=== PATIENT | male | born 1955 | race Caucasian/White ===

== ENCOUNTER 2018-11-25 11:29 | Outpatient (CLI) | payer MEDICAID, SELFPAY ==
--- NOTE | 2018-11-25 10:50 | DI.RAD_ITS ---
EXAM: XR KNEE LT 3V AP,LAT,LUPILLO INDICATION: CHRONIC PAIN. COMPARISON: XR KNEE RT 3V AP,LAT,LUPILLO from 11/25/2018 TECHNIQUE: 2D digital imaging was performed. FINDINGS: Three views were obtained. No bony or soft tissue abnormality seen. IMPRESSION:
--- NOTE | 2018-11-25 11:09 | DI.RAD_ITS ---
EXAM: XR KNEE RT 3V AP,LAT,LUPILLO INDICATION: CHRONIC PAIN. COMPARISON: No exams were available for comparison TECHNIQUE: 2D digital imaging was performed. FINDINGS: Three views were obtained. There narrowing of the medial tibiofemoral cartilaginous joint space. No bony or soft tissue abnormality seen. IMPRESSION: Narrowing of medial tibiofemoral cartilaginous joint space, presumably on a degenerative basis.
== END 2018-11-25 11:49 ==
PROVIDERS: PCP General Practice; Visit Provider General Practice
DX: M25.561 Pain in right knee (principal); G89.29 Other chronic pain; M17.11 Unilateral primary osteoarthritis, right knee; M25.562 Pain in left knee
CPT/HCPCS: 73562

== ENCOUNTER 2019-02-21 03:11 | Outpatient (CLI) | payer MEDICAID, SELFPAY ==
[2019-02-21 12:26] LABS: Hemoglobin A1C 5.6 % (3.8-5.6)
[2019-02-21 12:39] LABS: Calculated LDL 117 mg/dL; Cholesterol 203 mg/dL (<200); HDL Cholesterol 72 mg/dL (40-60); Triglyceride 71 mg/dL (<150)
[2019-02-24 10:25] LABS: PSA, Screening 1.8 ng/mL (0.0-4.5)
== END 2019-02-21 03:31 ==
PROVIDERS: PCP Nurse Practitioner; Visit Provider Nurse Practitioner
DX: Z13.1 Encounter for screening for diabetes mellitus (principal); Z13.220 Encounter for screening for lipoid disorders; Z12.5 Encounter for screening for malignant neoplasm of prostate
CPT/HCPCS: 36415; 80061; 84153; 83036

== ENCOUNTER 2020-12-16 02:51 | Outpatient (CLI) | payer MEDICAID, SELFPAY ==
[2020-12-16 22:24] LABS: PSA, Screening 2.9 ng/mL (0.0-4.5)
== END 2020-12-16 02:52 | disposition home or self-care (01) ==
LOC: LBO 02:51
PROVIDERS: PCP Nurse Practitioner; Visit Provider Nurse Practitioner
DX: Z12.5 Encounter for screening for malignant neoplasm of prostate (principal)
CPT/HCPCS: 36415; 84153

== ENCOUNTER 2022-11-01 14:33 | Outpatient (REF) | payer MEDICAID, SELFPAY ==
[2022-11-01 18:35] LABS: Hemoglobin A1C 5.6 % (<5.7)
[2022-11-02 19:57] LABS: PSA, Screening 4.7 ng/mL (<=4.5)
[2022-11-03 10:05] LABS: Hepatitis C Ab w Rflx HCV PCR Negative (Negative)
[2022-11-03 10:26] LABS: HIV-1/2 Ag & Ab Screen Negative (Negative)
== END 2022-11-01 14:34 | disposition home or self-care (01) ==
LOC: NCHCN 14:33
PROVIDERS: PCP Family Medicine; Visit Provider Family Medicine
DX: Z13.1 Encounter for screening for diabetes mellitus (principal); Z80.42 Family history of malignant neoplasm of prostate; Z11.4 Encounter for screening for human immunodeficiency virus [HIV]; Z12.5 Encounter for screening for malignant neoplasm of prostate; Z11.59 Encounter for screening for other viral diseases
CPT/HCPCS: 84153; 86803; 87389; 83036

== ENCOUNTER 2022-11-13 16:21 | Outpatient (REF) | payer MEDICAID, SELFPAY ==
[2022-11-13 16:15] LABS: Platelet Count 321 10^3/uL (130-400)
[2022-11-13 16:37] LABS: Hemoglobin A1C 5.6 % (<5.7)
[2022-11-13 17:00] LABS: Calculated LDL 115 mg/dL (<100); Cholesterol 195 mg/dL (<200); HDL Cholesterol 70 mg/dL (40-60); Triglyceride 53 mg/dL (<150)
== END 2022-11-13 16:22 | disposition home or self-care (01) ==
LOC: NCHCN 16:21
PROVIDERS: PCP Family Medicine; Visit Provider Family Medicine
DX: G45.9 Transient cerebral ischemic attack, unspecified (principal); Z13.1 Encounter for screening for diabetes mellitus
CPT/HCPCS: 80061; 83036; 85049

== ENCOUNTER 2022-11-16 08:51 | Outpatient (CLI) | payer MEDICAID, SELFPAY | END 2022-11-16 08:52 | disposition home or self-care (01) | PROVIDERS: PCP Family Medicine; Visit Provider Family Medicine | DX: G45.9 Transient cerebral ischemic attack, unspecified (principal) | CPT/HCPCS: 93270 ==

== ENCOUNTER → 2022-11-29 02:51 | Outpatient (CLI) | payer MEDICAID, SELFPAY ==
--- NOTE | 2022-11-29 | DI.MRI_ITS ---
Exam(s) MR BRAIN WO EXAM: MR BRAIN WO CLINICAL HISTORY: TIA,G45.9 TECHNIQUE: Multiplanar multisequence MRI of the brain was performed. COMPARISON: No exams were available for comparison FINDINGS: VENTRICLES AND EXTRA AXIAL SPACES: Normal in size and morphology for the patient's age. MIDLINE SHIFT: None. CEREBRAL PARENCHYMA: No focus of restricted diffusion to suggest acute infarct. No space-occupying le jc identified. There are few foci of hyperintense signal seen in the white matter on the FLAIR and T2 weighted images likely reflecting small vessel ischemic disease. HEMORRHAGE: None. BRAINSTEM/CEREBELLUM: Normal. CALVARIUM: Normal. VISUALIZED PARANASAL SINUSES/MASTOIDS:No fluid levels are seen. There is mild mucosal thickening in the visualized paranasal sinuses. [place]: Normal flow void. PITUITARY GLAND: Unremarkable. OTHER FINDINGS: None. IMPRESSION: 1. No evidence of an acute infarct. 2. White matter foci on the FLAIR and T2 weighted images likely reflecting small vessel ischemic dise ase. DATA REPOSITORY:
--- NOTE | 2022-11-29 | DI.MRI_ITS ---
Exam(s) MR ANGIO NECK WO EXAM: MR ANGIO NECK WO CLINICAL HISTORY: TIA,G45.9. TECHNIQUE: Multiplanar multisequence MRA of the Neck was performed. COMPARISON: No exams were available for comparison FINDINGS: There is patient motion artifact. Common Carotid: Right: No dissection, occlusion or significant stenosis. Left: No dissection, occlusion or significant stenosis. External Carotid: Right: No evidence of occlusion or significant stenosis. Left: No evidence of occlusion or significant stenosis. Internal Carotid: Right: No dissection, occlusion or significant stenosis. Left: No dissection, occlusion or significant stenosis. Vertebral Artery: Right: No dissection, occlusion or significant stenosis. Left: No dissection, occlusion or significant stenosis. The visualized paraspinal soft tissues are unremarkable. IMPRESSION: No evidence of dissection, occlusion or significant stenosis. DATA REPOSITORY:
--- NOTE | 2022-11-29 | DI.MRI_ITS ---
Exam(s) MR ANGIO BRAIN WO CLINICAL HISTORY: TIA,G45.9. TECHNIQUE: Multiplanar multisequence MRA of the brain was performed. COMPARISON: MR MR BRAIN WO from 11/29/2022 FINDINGS: Carotid Arteries: No aneurysm, occlusion or significant stenosis. Anterior Cerebral Arteries: Right: No aneurysm, occlusion or significant stenosis. Left: No aneurysm, occlusion or significant stenosis. Middle Cerebral Arteries: Right: No aneurysm, occlusion or significant stenosis. Left: No aneurysm, occlusion or significant stenosis. Posterior Cerebral Arteries: Right: No aneurysm, occlusion or significant stenosis. Left: No aneurysm, occlusion or significant stenosis. Vertebral Arteries: Right: No aneurysm, occlusion or significant stenosis. Left: No aneurysm, occlusion or significant stenosis. Basilar Artery: No aneurysm, occlusion or significant stenosis. IMPRESSION: Normal MRA examination of the [place]. DATA REPOSITORY:
== END ==
PROVIDERS: PCP Family Medicine; Visit Provider Family Medicine
DX: G45.9 Transient cerebral ischemic attack, unspecified (principal)
CPT/HCPCS: 70544; 70547; 70551

== ENCOUNTER → 2022-12-22 03:07 | Outpatient (CLI) | payer MEDICAID, SELFPAY ==
--- NOTE | 2022-12-22 07:30 | DI.US_ITS ---
APPROVED REPORT EXAM: Comprehensive 2D, Doppler, and color-flow Echocardiogram Patient Location: Out-Patient Lead Programmer: Lanette Boyd RDCS (AE) Indications: TIA Other Information Study Quality: Adequate Conclusion Normal left ventricular wall thickness and chamber size. Ejection fraction is 59%. Wall motion is n ormal Normal right ventricular size and function Both atria are normal in size There is no structural or hemodynamically significant valvular disease Estimated right ventricular systolic pressure is 23 mmHg Wall motion Left Ventricle The left ventricle is normal size. The left ventricular systolic function is normal. The left ventric ular ejection fraction is within the normal range. There is normal left ventricular wall thickness. T here is normal LV segmental wall motion. There is no ventricular septal defect visualized. LVEF is 59 %. Right Ventricle The right ventricle is normal size. The right ventricular systolic function is normal. Atria The left atrium size is normal. The right atrium size is normal. The interatrial septum is intact wit h no evidence for an atrial septal defect. Aortic Valve The aortic valve is normal in structure. Aortic valve is trileaflet. There is no aortic valvular sten osis. No aortic regurgitation is present. Mitral Valve The mitral valve is normal in structure. No evidence of mitral valve stenosis. Trace mitral regurgita tion. Tricuspid Valve The tricuspid valve is normal in structure. There is no tricuspid valve stenosis. Trace tricuspid reg urgitation. The RVSP is 23.3mmHg. Pulmonic Valve The pulmonary valve is normal in structure. There is no pulmonic valvular stenosis. Trace pulmonic re gurgitation. Great Vessels The aortic root is normal in size. The ascending aorta is normal in size. Aortic arch is normal in ca liber. IVC is normal in size and collapses >50% with inspiration. Pericardium There is no pericardial effusion. 2D Dimensions IVSD d PLAX 0.75 cm M: 0.6-1.2 Ao Root d 3.32 cm M: 3.1 - 3.7 LVPW d PLAX 0.72 cm M: 0.6 - 1.2 Ao Asc Diam d 3.33 cm M: 2.6 - 3.4 LVID d PLAX 4.24 cm M: 4.2 - 5.8 LVDs 2.94 cm M: 2.5 - 4.0 LV EF Teichholz 58.5 % FS 30.62 % LV EDV (Teich) 80.3 mL LV ESV (Teich) 33.3 mL M-Mode TAPSE 2.45 cm (M/F) >1.7 Auto EF LV EDV A4C 84.3 mL LV EDV A2C 90.8 mL LV EDV BP 88.0 mL LV ESV A4C 35.6 mL LV ESV A2C 34.6 mL LV ESV BP 35.0 mL LVEF(%) A4C 57.8 % LVEF(%) A2C 61.9 % LVEF(%) BP 60.2 % LV SV A4C 48.7 ml LV SV A2C 56.3 ml LV SV BP 53.0 ml LV CO A4C 2.6 L/min LV CO A2C 3.4 L/min LV CO BP 3.0 L/min HR A4C 53.41 BPM HR A2C 60.61 BPM LV EDV Index (BP) LV Strain Long Pk Overal Avg (s) 19.73 RV Strain Global Peak Long. Strain A4C 16.74 Global Peak Long. Strain A4C FW 19.49 LA Volume LA Length A4C 4.2 cm LA Length A2C 3.9 cm LA Area A4C s 12.60 cm2 LA Area A2C s 11.61 cm2 LA Vol A4C A-L 32.47 mL LA Vol A2C A-L 29.37 mL LA Vol Biplane A-L 31.9 mL LA Vol/BSA A4C A-L LA Vol/BSA A2C A-L LA Vol/BSA BP A-L 17.5 mL/m2 LA Vol A4C MOD 29.2 mL LA Vol A2C MOD 26.9 mL LA Vol BP MOD 28.9 mL RA Volume RA Area A4C 13.8 cm2 RA ESV A4C (A-L) 33.9mL RA Vol/BSA A4C A-L RA Length A4C 4.8 cm RA ESV A4C (MOD) 32.6mL LV Diastology MV E' medial 0.101 (>0.07 m/s) MV E Vmax 0.83 (0.4-1.3 m/s) MV E/E' MED 8.26 (<14) MV A Vmax 0.55 (0.4-1.3 m/s) MV E' lateral 0.113 (>0.1 m/s) E/A Ratio 1.5 MV E/E' LAT 7.35 (<14) MV E' Average 0.107 m/s MV E/E'(average) 7.78 Aortic Valve AoV Vmax 1.47 m/s LVOT Vmax 1.25 m/s AoV Peak Grad 8.7 mmHg LVOT Peak Grad 6.2 mmHg AoV Area (Vmax) 2.61 cm2 LVOT VTI 0.242 m AoV VTI 0.297 m LVOT Mean Grad 3.1 mmHg AoV Mean Girma. 0.91 m/s LVOT SV 74.76 mL AoV Mean Grad 4.0 mmHg LVOT Diam s 1.95 cm AoV Area (VTI) 2.51 cm2 Velocity Ratio 0.85 Mitral Valve MV DT 204 (160-240 msec) Pulmonary Valve PV Vmax 1.09 (0.5-1.5 m/s) RVOT Vmax 0.79 m/s PV Peak Grad 4.8 mmHg RVOT Peak Gr. 2.5 mmHg PV Mean Girma 0.80 m/s RVOT VTI 0.153 m PV Mean Grad 2.9 mmHg RVOT Mean Gr. 1.3 mmHg Tricuspid Valve RA Pressure 3.00 mmHg TR Vmax 2.25 m/s TV S' 0.13 m/s TR Peak Grad 20.3 mmHg RVSP (TR) 23.3 mmHg
== END ==
PROVIDERS: PCP Family Medicine; Visit Provider Family Medicine
DX: G45.9 Transient cerebral ischemic attack, unspecified (principal)
CPT/HCPCS: 93306

== ENCOUNTER 2022-12-22 07:53 | Outpatient (CLI) | payer MEDICAID, SELFPAY ==
--- NOTE | 2022-12-22 13:00 | CER_ITS ---
Date of service: 12/22/22 Time of Service: 13:00 Cardiac Event Recorder Referring Provider:: Rosamaria Lawson Indications:: TIA Cardiac Event Note: This is a cardiac event recorder ordered because of a transient ischemic attack Patient was monitored for 28 days and 9 hours Predominant rhythm was sinus with an average heart rate of 69. Minimum was 56, maximum 107 There were rare ventricular ectopic beats. There was one 5 beat run of nonsust ained ventricular tachycardia 1 strip was labeled atrial fibrillation that may have been sinus with atrial premature beats, ventricular ectopics and artifact. Rate was 100. This was not definitively atrial fibrillation There was no high-grade AV block, no pauses greater than 3 seconds There were no apparent patient symptoms
== END 2022-12-22 07:54 | disposition home or self-care (01) ==
LOC: CARDOPNVT 07:53
PROVIDERS: PCP Family Medicine; Visit Provider Internal Medicine Cardiovascular Disease
DX: G45.9 Transient cerebral ischemic attack, unspecified (principal)

== ENCOUNTER 2023-01-12 11:13 | Outpatient (CLI) | payer MEDICAID, SELFPAY ==
--- NOTE | 2023-01-12 11:00 | RT.EKG_ITS ---
APPROVED REPORT Exam: Resting ECG Reason for Exam: baseline Patient Location: O HR:63 bpm ECG Measurements Heart Rate 63 AXIS VT 159 P 8 QRSd 80 QRS 13 QT 361 T 41 QTc 370 Conclusion Sinus rhythm...normal P axis, V-rate 50- 99 Normal Electrocardiogram
== END 2023-01-12 11:14 | disposition home or self-care (01) ==
LOC: DI.CARD 11:15
PROVIDERS: PCP Family Medicine; Visit Provider Internal Medicine Cardiovascular Disease
DX: R42 Dizziness and giddiness (principal)
CPT/HCPCS: 93010

== ENCOUNTER 2023-02-19 16:40 | Outpatient (REF) | payer MEDICAID, SELFPAY ==
[2023-02-19 16:39] LABS: ALT 19 U/L (16-63); Calculated LDL 122 mg/dL (<100); Cholesterol 223 mg/dL (<200); HDL Cholesterol 87 mg/dL (40-60); Triglyceride 72 mg/dL (<150)
[2023-02-20 10:28] LABS: PSA, Screening 2.1 ng/mL (<=4.5)
== END 2023-02-19 16:41 | disposition home or self-care (01) ==
LOC: NCHCN 16:40
PROVIDERS: PCP Family Medicine; Visit Provider Family Medicine
DX: E78.5 Hyperlipidemia, unspecified (principal); Z12.5 Encounter for screening for malignant neoplasm of prostate; Z80.42 Family history of malignant neoplasm of prostate
CPT/HCPCS: 80061; 84153; 84460

== ENCOUNTER 2023-11-05 18:52 | Outpatient (REF) | payer MEDICARE, MEDICAID, SELFPAY ==
[2023-11-07 10:13] LABS: Lyme Ab w Rflx to Lyme Confirm Positive (Negative)
[2023-11-07 11:09] LABS: Lyme IgG Ab Positive (Negative); Lyme IgM Ab Negative (Negative)
== END 2023-11-05 18:53 | disposition home or self-care (01) ==
LOC: NCHCN 18:52
PROVIDERS: PCP Family Medicine; Visit Provider Nurse Practitioner Family
DX: R23.8 Other skin changes (principal)
CPT/HCPCS: 86617; 86618

== ENCOUNTER 2023-11-30 12:17 | Outpatient (REF) | payer MEDICARE, MEDICAID, SELFPAY ==
[2023-11-30 18:56] LABS: HCT 44.4 % (40.0-50.0); HGB 15.2 g/dL (13.5-17.5); MCH 31.5 pg (27.0-33.0); MCHC 34.2 % (32.0-36.0); MCV 92 fL (80-95); Platelet Count 293 10^3/uL (130-400); RBC 4.83 10^6/uL (4.36-5.78); RDW-SD 43.3 fL; WBC 4.37 10^3/uL (4.4-10.8)
[2023-11-30 19:19] LABS: ALT 15 U/L (16-63); AST 16 U/L (15-37); Albumin 3.9 g/dL (3.4-5.0); Alkaline Phosphatase 74 U/L (46-116); Anion Gap 7.6 mmol/L (3-11); BUN 6 mg/dL (7-18); Bilirubin, Total 0.72 mg/dL (0.2-1.0); CO2 28.4 mmol/L (21.0-32.0); CREATININE 0.9 mg/dL (0.70-1.30); Calcium 9.4 mg/dL (8.5-10.1); Chloride 101 mmol/L (98-107); Estimated GFR 93.61 (mL/min/1.73m2); Glucose 97 mg/dL (74-106); Sodium 137 mmol/L (136-145); TSH (W/Ref FT4) 1.47 uIU/mL (0.36-3.74); Total Protein 6.8 g/dL (6.4-8.2)
[2023-12-03 10:53] LABS: PSA, Screening 2.3 ng/mL (<=4.5)
== END 2023-11-30 12:18 | disposition home or self-care (01) ==
LOC: NCHCN 12:17
PROVIDERS: PCP Family Medicine; Visit Provider Family Medicine
DX: R53.83 Other fatigue (principal); Z12.5 Encounter for screening for malignant neoplasm of prostate
CPT/HCPCS: 80053; 84153; 85027; 84443

== ENCOUNTER 2024-01-21 18:30 | Outpatient (REF) | payer MEDICARE, MEDICAID, SELFPAY ==
[2024-01-21 20:31] LABS: ALT 17 U/L (16-63); Calculated LDL 43 mg/dL (<100); Cholesterol 147 mg/dL (<200); HDL Cholesterol 92 mg/dL (40-60); Triglyceride 63 mg/dL (<150)
== END 2024-01-21 18:31 | disposition home or self-care (01) ==
LOC: NCHCN 18:30
PROVIDERS: PCP Family Medicine; Visit Provider Family Medicine
DX: E78.5 Hyperlipidemia, unspecified (principal)
CPT/HCPCS: 80061; 84460

== ENCOUNTER 2024-09-13 12:34 | Outpatient (REF) | payer MEDICARE, MEDICAID, SELFPAY ==
[2024-09-13 16:10] LABS: Abs Immature Grans 0.09 10^3/uL (0.0-0.06); HCT 43.3 % (40.0-50.0); HGB 14.8 g/dL (13.5-17.5); Immature Grans % 1.1 %; MCH 31.0 pg (27.0-33.0); MCHC 34.2 % (32.0-36.0); MCV 91 fL (80-95); MPV 9.1 fL (8.0-11.0); Platelet Count 297 10^3/uL (130-400); RBC 4.78 10^6/uL (4.36-5.78); RDW 12.2 % (11.8-14.1); RDW-SD 40.5 fL; WBC 7.99 10^3/uL (4.4-10.8)
[2024-09-13 16:29] LABS: ALT 27 U/L (16-63); AST 18 U/L (15-37); Albumin 4.0 g/dL (3.4-5.0); Alkaline Phosphatase 71 U/L (46-116); Anion Gap 10.5 mmol/L (3-11); BUN 7 mg/dL (7-18); Bilirubin, Total 0.7 mg/dL (0.2-1.0); CO2 26.5 mmol/L (21.0-32.0); Calcium 9.2 mg/dL (8.5-10.1); Chloride 95 mmol/L (98-107); Estimated GFR 100.99 (mL/min/1.73m2); Glucose 105 mg/dL (74-106); Potassium 4.5 mmol/L (3.5-5.1); Sodium 132 mmol/L (136-145); Total Protein 7.2 g/dL (6.4-8.2)
[2024-09-15 10:34] LABS: Lyme Ab w Rflx to Lyme Confirm Positive (Negative)
[2024-09-15 17:06] LABS: Lyme IgG Ab Positive (Negative)
== END 2024-09-13 12:35 | disposition home or self-care (01) ==
LOC: LBN 12:34
PROVIDERS: PCP Family Medicine; Visit Provider Nurse Practitioner Family
DX: A69.20 Lyme disease, unspecified (principal)
CPT/HCPCS: 80053; 86617; 85025; 86618